=== PATIENT | female | born 1960 | race Caucasian/White ===

== ENCOUNTER 2016-11-05 07:06 | Day surgery (SDC) | payer OTHER ==
[~2016-11-05] VITALS: Ht 168.9 cm; Wt 96.2 kg
[~2016-11-05 07:06] MED LIST: ADVAIR 250/501 DISK IH; ADVAIR 500/501 DISK IH; ANTIVERT25 MG PO; ASPIR 8181 M1 PO; ASPIR-LOW81 MG PO; ASPIRIN81 M2 PO; ATORVASTATIN CA20 MG PO; Aspirin E.C. PO; BREO ELLIPTA I1 EACH IH; DEXILANT60 MG PO; FLEXERIL10 MG PO; GLUCOPHAGE1000 MG PO; HYDROCODON-ACE1 EAC7 PO; IBUPROFEN800 MG PO; INDERAL20 MG PO; LEXAPRO10 MG PO; LIPITOR20 MG PO; LO-DOSE ASPIRIN81 M1 PO; LO-DOSE ASPIRIN81 M2 PO; LOW DOSE ASPIRI81 M1 PO; LYRICA100 MG PO; LYRICA50 MG PO; MECLIZINE HCL25 MG PO; METFORMIN HCL500 MG PO; METHIMAZOLE5 MG PO; MOBIC7.5 MG PO; MOTRIN800 MG PO; NAPROSYN250 MG PO; NAPROSYN500 MG PO; NAPROXEN500 MG PO; NICOTINE PATCH1 EAC1 TD; NORCO 5/3251 TABLET PO; PREDNISONE20 MG PO; PREDNISONE50 MG PO; PRILOSEC20 MG PO; PROPRANOLOL HCL20 MG PO; PROTONIX40 MG PO; REGLAN10 MG PO; ST. JOSEPH ASPI81 MG PO; TAPAZOLE5 MG PO; TRADJENTA5 MG PO; TYLENOL EXTRA500 MG PO; VENTOLIN HFA18 GM IH; WELLBUTRIN SR150 MG PO; ZITHROMAX Z-PA250 MG PO
[2016-11-05 07:55] LABS: POINT-OF-CARE METER ID UU14174212
[2016-11-05] MEDS ORDERED: CO Q-10100 MG PO (08:01)
[2016-11-05] MEDS ORDERED: ASCORBIC ACID500 M3 PO (08:01)
[2016-11-05] MEDS ORDERED: DAILY VALUE1 EACH PO (08:02)
== END 2016-11-05 09:30 | disposition home or self-care (01) ==
LOC: PAIN 07:06 → SDC 08:30 → PAIN 08:30
PROVIDERS: Anesthesiology Pain Medicine
PROC: 3E0T3BZ Introduction of Anesthetic Agent into Peripheral Nerves and Plexi, Percutaneous Approach (ICD-10-PCS; principal; 2016-11-05)
DX: M47.896 Other spondylosis, lumbar region (principal); Z53.9 Procedure and treatment not carried out, unspecified reason
CPT/HCPCS: 82948

== ENCOUNTER 2017-02-11 09:36 | Day surgery (SDC) | payer OTHER ==
[~2017-02-11] VITALS: Ht 167.6 cm; Wt 98.9 kg
[~2017-02-11 09:36] MED LIST changes: +ASCORBIC ACID500 M3 PO; +AZELASTINE137 MCG/0. BOTH NARES; +CLARITIN10 M3 PO; +CO Q-10100 MG PO; +DAILY VALUE1 EACH PO; +DUONEB 2.5-0.5 M3 ML AEROSOL; +MUCINEX D ER T1 EACH PO; +NICODERM CQ1 EAC1 TD; +PRANDIN1 MG PO
[2017-02-11 10:27] LABS: POINT-OF-CARE METER ID UU14174212
== END 2017-02-11 11:43 | disposition home or self-care (01) ==
LOC: PAIN 09:36 → SDC 10:15 → PAIN 11:43
PROVIDERS: Anesthesiology Pain Medicine
DX: M47.26 Other spondylosis with radiculopathy, lumbar region (principal); F41.9 Anxiety disorder, unspecified; G89.29 Other chronic pain; Z79.891 Long term (current) use of opiate analgesic; E11.9 Type 2 diabetes mellitus without complications; J44.9 Chronic obstructive pulmonary disease, unspecified; E66.9 Obesity, unspecified; Z68.35 Body mass index [BMI] 35.0-35.9, adult; Z88.5 Allergy status to narcotic agent; Z88.8 Allergy status to other drugs, medicaments and biological substances; Z79.82 Long term (current) use of aspirin
CPT/HCPCS: 82948; J1030; J2250; J3010; S0020

== ENCOUNTER 2017-02-18 09:06 | Day surgery (SDC) | payer OTHER ==
[~2017-02-18] VITALS: Ht 167.6 cm; Wt 98.9 kg
[2017-02-18 09:53] LABS: POINT-OF-CARE METER ID UU14174212
== END 2017-02-18 10:10 | disposition home or self-care (01) ==
LOC: PAIN 09:06 → SDC 10:00 → PAIN 10:00
PROVIDERS: Anesthesiology Pain Medicine
DX: M51.16 Intervertebral disc disorders with radiculopathy, lumbar region (principal); I10 Essential (primary) hypertension; J44.9 Chronic obstructive pulmonary disease, unspecified; J45.909 Unspecified asthma, uncomplicated; K21.9 Gastro-esophageal reflux disease without esophagitis; E03.9 Hypothyroidism, unspecified; Z86.73 Personal history of transient ischemic attack (TIA), and cerebral infarction without residual deficits; F41.8 Other specified anxiety disorders; E78.5 Hyperlipidemia, unspecified; E66.9 Obesity, unspecified; Z68.35 Body mass index [BMI] 35.0-35.9, adult; Z79.84 Long term (current) use of oral hypoglycemic drugs; Z79.82 Long term (current) use of aspirin; Z79.891 Long term (current) use of opiate analgesic; Z79.899 Other long term (current) drug therapy
CPT/HCPCS: 82948; J1030; J2250; J3010; S0020

== ENCOUNTER 2017-03-08 16:35 | Emergency (ER) | payer OTHER ==
[~2017-03-08] VITALS: Ht 167.6 cm; Wt 97.7 kg
[2017-03-08 17:37] LABS: HEMATOCRIT 39.8 % (36.0-46.0); MCHC 32.9 G/DL (30.0-36.0); MCV 97.1 FL (83-99); PLATELET COUNT 120 K/uL (156-360); RBC DIS.WIDTH-CV 13.3 % (11.8-14.6); RBC DIS.WIDTH-SD 47.6 % (39-53); WHITE BLOOD COUNT 12.8 K/uL (4.1-10.2)
[2017-03-08 17:46] LABS: CHLORIDE 106 mEq/L (99-109); POTASSIUM 3.9 mEq/L (3.7-5.4); SODIUM 140 mEq/L (136-147)
[2017-03-08 17:48] LABS: GLUCOSE 161 mg/dL (70-99)
[2017-03-08 17:49] LABS: ANION GAP 12 MEQ/L (2-14)
[2017-03-08 17:52] LABS: GFR ESTIMATE (CALCULATED) > 59 mL/min/; UREA NITROGEN (BUN) 13 mg/dL (9-23)
[2017-03-08 17:59] LABS: TROP-I INTERPRETATION NEGATIVE; TROPONIN-I < 0.01 ng/mL (0.0-0.30)
[2017-03-08 21:13] VITALS: BP 159/82
== END 2017-03-08 21:14 | disposition home or self-care (01) ==
LOC: EME → EDBD 16:35 → EME 16:35
PROVIDERS: Emergency Medicine
DX: R42 Dizziness and giddiness (principal); J45.909 Unspecified asthma, uncomplicated; E11.9 Type 2 diabetes mellitus without complications; E78.5 Hyperlipidemia, unspecified; I25.2 Old myocardial infarction; Z86.73 Personal history of transient ischemic attack (TIA), and cerebral infarction without residual deficits; F17.200 Nicotine dependence, unspecified, uncomplicated
CPT/HCPCS: 80048; 84484; 85027; 93005; 99281; 99284; J7030

== ENCOUNTER 2017-04-24 08:52 | Inpatient (IN) | payer OTHER ==
[~2017-04-24] VITALS: Ht 167.6 cm; Wt 101.1 kg
[2017-04-24 10:15] LABS: HEMATOCRIT 40.5 % (36.0-46.0); MCH 31.1 PG (29.0-34.0); MCHC 32.6 G/DL (30.0-36.0); MCV 95.3 FL (83-99); MEAN PLAT.VOLUME 11.1 uM^3 (9.5-12.4); PLATELET COUNT 128 K/uL (156-360); RBC DIS.WIDTH-CV 14.3 % (11.8-14.6); RBC DIS.WIDTH-SD 49.5 % (39-53); RED BLOOD COUNT 4.25 M/uL (3.80-5.20)
[2017-04-24 10:23] LABS: CHLORIDE 103 mEq/L (99-109); POTASSIUM 4.1 mEq/L (3.7-5.4); SODIUM 137 mEq/L (136-147)
[2017-04-24 10:25] LABS: GLUCOSE 223 mg/dL (70-99)
[2017-04-24 10:27] LABS: ANION GAP 10 MEQ/L (2-14)
[2017-04-24 10:29] LABS: GFR ESTIMATE (CALCULATED) > 59 mL/min/
[2017-04-24 10:30] LABS: UREA NITROGEN (BUN) 7 mg/dL (9-23)
[2017-04-24 13:02] LABS: ADD MIUA? YES; BILIRUBIN NEGATIVE; BLOOD NEGATIVE; COLOR YELLOW ((YELLOW)); GLUCOSE (STRIP) NEGATIVE; KETONES NEGATIVE; LEUKOCYTES SMALL; NITRITE NEGATIVE; PROTEIN (STRIP) 30; SPECIFIC GRAVITY 1.011 (1.000-1.030); UROBILINOGEN 0.2 MG/DL (0.2-1.0)
[2017-04-24 13:08] LABS: BACTERIA RARE /HPF; EPITHELIAL CELLS RARE /HPF; MUCUS TRACE /LPF; RED BLOOD CELLS 0-5 /HPF (0-5); UCUL ADDED? NO
[2017-04-24] MEDS ORDERED: BUPROPION XL150 MG PO (15:55)
[2017-04-24] MEDS ORDERED: LEXAPRO20 MG PO (15:56)
[2017-04-24] MEDS ORDERED: MOBIC15 MG PO (15:59)
[2017-04-24] MEDS ORDERED: ALOGLIPTIN12.5 MG PO (16:05)
[2017-04-24 17:08] LABS: INFLUENZA A VIRAL ANTIGEN NEGATIVE; INFLUENZA B VIRAL ANTIGEN NEGATIVE
[2017-04-24 17:24] VITALS: BP 107/56
[2017-04-24 18:06] LABS: METH RESISTANT S AUREUS PCR NEGATIVE (NEGATIVE); PROBE CHECK PASS; SPECIMEN PROCESSING CONTROL PASS
[2017-04-24 20:00] VITALS: BP 105/54
[2017-04-25] VITALS (7 sets, daily range): BP systolic 125–169; BP diastolic 58–81
[2017-04-25 06:30] LABS: HEMATOCRIT 37.2 % (36.0-46.0); MCH 31.5 PG (29.0-34.0); MCHC 32.3 G/DL (30.0-36.0); MCV 97.6 FL (83-99); MEAN PLAT.VOLUME 11.5 uM^3 (9.5-12.4); PLATELET COUNT 105 K/uL (156-360); RBC DIS.WIDTH-CV 14.4 % (11.8-14.6); RBC DIS.WIDTH-SD 51.4 % (39-53); RED BLOOD COUNT 3.81 M/uL (3.80-5.20); WHITE BLOOD COUNT 7.4 K/uL (4.1-10.2)
[2017-04-25 06:55] LABS: ANION GAP 7 MEQ/L (2-14); CHLORIDE 108 MEQ/L (99-109); GFR ESTIMATE (CALCULATED) > 59 mL/min/; GLUCOSE 203 mg/dL (70-99); POTASSIUM 4.1 MEQ/L (3.7-5.4); SAMPLE HEMOLYSIS CHECK 0; SAMPLE ICTERIC CHECK 0; SAMPLE LIPEMIA CHECK 0; SODIUM 140 MEQ/L (136-147); UREA NITROGEN (BUN) 10 mg/dL (9-23)
[2017-04-25 07:48] LABS: POINT-OF-CARE METER ID UU14174225
[2017-04-25 11:03] LABS: INTERNAL CONTROL VALID? YES
[2017-04-25 11:57] LABS: POINT-OF-CARE METER ID UU14174225
[2017-04-25 16:39] LABS: POINT-OF-CARE METER ID UU13113717
[2017-04-26 03:44] VITALS: BP 140/81
[2017-04-26 06:23] LABS: HEMATOCRIT 37.1 % (36.0-46.0); MCH 30.8 PG (29.0-34.0); MCHC 32.1 G/DL (30.0-36.0); MCV 96.1 FL (83-99); MEAN PLAT.VOLUME 11.5 uM^3 (9.5-12.4); PLATELET COUNT 124 K/uL (156-360); RBC DIS.WIDTH-SD 49.7 % (39-53); RED BLOOD COUNT 3.86 M/uL (3.80-5.20); WHITE BLOOD COUNT 6.3 K/uL (4.1-10.2)
[2017-04-26 08:15] LABS: POINT-OF-CARE METER ID UU14174225
[2017-04-26 08:41] VITALS: BP 148/82
[2017-04-26] MEDS ORDERED: CEFDINIR300 MG PO (09:17)
[2017-04-26] MEDS ORDERED: NICODERM CQ1 EAC1 TD (09:17)
== END 2017-04-26 11:25 | disposition home or self-care (01) | DRG 871 ==
LOC: EME 08:52 → EDOF 14:44 → 5SOUTH 15:52
PROVIDERS: Emergency Medicine; Internal Medicine
DX: A41.9 Sepsis, unspecified organism (principal); J44.0 Chronic obstructive pulmonary disease with (acute) lower respiratory infection; J18.9 Pneumonia, unspecified organism; E11.65 Type 2 diabetes mellitus with hyperglycemia; E05.90 Thyrotoxicosis, unspecified without thyrotoxic crisis or storm; E78.5 Hyperlipidemia, unspecified; G89.29 Other chronic pain; M54.31 Sciatica, right side; K21.9 Gastro-esophageal reflux disease without esophagitis; I10 Essential (primary) hypertension; F17.210 Nicotine dependence, cigarettes, uncomplicated; Z79.82 Long term (current) use of aspirin; I25.2 Old myocardial infarction; Z79.84 Long term (current) use of oral hypoglycemic drugs; Z86.73 Personal history of transient ischemic attack (TIA), and cerebral infarction without residual deficits
CPT/HCPCS: 71020; 71250; 80048; 81003; 82948; 83605; 85027; 87040; 87070; 87086; 87205; 87449; 87502; 87641; 94640; 94799; 99202; 99281; 99285; J0696; J1650; J1815; J7030; J7050

== ENCOUNTER → 2017-07-16 | Outpatient (CLI) | payer OTHER ==
[~2017-07-16] MED LIST changes: +ALOGLIPTIN12.5 MG PO; +BUPROPION XL150 MG PO; +CEFDINIR300 MG PO; +LEXAPRO20 MG PO; +MOBIC15 MG PO
== END | disposition home or self-care (01) ==
LOC: RES 09:22
DX: J45.909 Unspecified asthma, uncomplicated (principal); J44.9 Chronic obstructive pulmonary disease, unspecified
CPT/HCPCS: 94060; 94726; 94729

== ENCOUNTER 2017-07-21 17:28 | Emergency (ER) | payer OTHER ==
[~2017-07-21] VITALS: Ht 167.6 cm; Wt 96.3 kg
[2017-07-21 19:05] LABS: HEMATOCRIT 44.8 % (36.0-46.0); MCH 32.1 PG (29.0-34.0); MCHC 33.5 G/DL (30.0-36.0); MCV 95.7 FL (83-99); PLATELET COUNT 179 K/uL (156-360); RBC DIS.WIDTH-SD 48.8 % (39-53); RED BLOOD COUNT 4.68 M/uL (3.80-5.20); WHITE BLOOD COUNT 10.6 K/uL (4.1-10.2)
[2017-07-21 19:16] LABS: CHLORIDE 108 mEq/L (99-109); POTASSIUM 4.3 mEq/L (3.7-5.4); SODIUM 144 mEq/L (136-147)
[2017-07-21 19:17] LABS: GLUCOSE 224 mg/dL (70-99)
[2017-07-21 19:19] LABS: ANION GAP 16 MEQ/L (2-14)
[2017-07-21 19:21] LABS: GFR ESTIMATE (CALCULATED) > 59 mL/min/
[2017-07-21 19:22] LABS: UREA NITROGEN (BUN) 11 mg/dL (9-23)
[2017-07-21 19:28] LABS: TROP-I INTERPRETATION NEGATIVE; TROPONIN-I 0.07 ng/mL (0.0-0.30)
[2017-07-21 21:48] LABS: TROP-I INTERPRETATION NEGATIVE; TROPONIN-I 0.07 ng/mL (0.0-0.30)
[2017-07-21 22:36] VITALS: BP 129/72
== END 2017-07-21 22:38 | disposition home or self-care (01) ==
LOC: EME 17:28
PROVIDERS: Emergency Medicine
DX: R07.89 Other chest pain (principal); M79.601 Pain in right arm; R42 Dizziness and giddiness; I10 Essential (primary) hypertension; E78.5 Hyperlipidemia, unspecified; J45.909 Unspecified asthma, uncomplicated; E11.9 Type 2 diabetes mellitus without complications; Z79.84 Long term (current) use of oral hypoglycemic drugs; Z79.82 Long term (current) use of aspirin; F17.200 Nicotine dependence, unspecified, uncomplicated
CPT/HCPCS: 71020; 80048; 84484; 85027; 93005; 99281; 99284

== ENCOUNTER 2017-08-11 16:54 | Emergency (ER) | payer OTHER ==
[~2017-08-11] VITALS: Ht 167.6 cm; Wt 97.3 kg
[2017-08-11 17:25] LABS: ADD MIUA? YES; BILIRUBIN SMALL; BLOOD NEGATIVE; COLOR YELLOW ((YELLOW)); GLUCOSE (STRIP) >=500; KETONES 5; LEUKOCYTES NEGATIVE; NITRITE NEGATIVE; PROTEIN (STRIP) 30; SPECIFIC GRAVITY 1.037 (1.000-1.030)
[2017-08-11 17:34] LABS: BACTERIA RARE /HPF; BUDDING YEAST RARE; EPITHELIAL CELLS 1+ /HPF; HYALINE CASTS 0-5 /LPF; MUCUS TRACE /LPF; RED BLOOD CELLS 0-5 /HPF (0-5); UCUL ADDED? NO; WHITE BLOOD CELLS 0-5 /HPF (0-5)
[2017-08-11 17:51] LABS: HEMATOCRIT 42.4 % (36.0-46.0); MCH 31.2 PG (29.0-34.0); MCHC 32.8 G/DL (30.0-36.0); MCV 95.3 FL (83-99); MEAN PLAT.VOLUME 12.1 uM^3 (9.5-12.4); PLATELET COUNT 156 K/uL (156-360); RBC DIS.WIDTH-CV 13.9 % (11.8-14.6); RBC DIS.WIDTH-SD 48.6 % (39-53); RED BLOOD COUNT 4.45 M/uL (3.80-5.20); WHITE BLOOD COUNT 10.3 K/uL (4.1-10.2)
[2017-08-11 18:03] LABS: CHLORIDE 105 mEq/L (99-109); POTASSIUM 3.8 mEq/L (3.7-5.4); SODIUM 141 mEq/L (136-147)
[2017-08-11 18:06] LABS: GLUCOSE 269 mg/dL (70-99)
[2017-08-11 18:07] LABS: ANION GAP 12 MEQ/L (2-14)
[2017-08-11 18:08] LABS: TOTAL BILIRUBIN 0.4 mg/dL (0.0-1.0)
[2017-08-11 18:09] LABS: ALKALINE PHOSPHATASE 86 IU/L (3-129); GFR ESTIMATE (CALCULATED) > 59 mL/min/
[2017-08-11 18:10] LABS: UREA NITROGEN (BUN) 9 mg/dL (9-23)
[2017-08-11 20:39] VITALS: BP 117/57
== END 2017-08-11 20:39 | disposition home or self-care (01) ==
LOC: EME 16:54
DX: R10.32 Left lower quadrant pain (principal); R42 Dizziness and giddiness; Z90.49 Acquired absence of other specified parts of digestive tract; K57.30 Diverticulosis of large intestine without perforation or abscess without bleeding; K42.9 Umbilical hernia without obstruction or gangrene; K76.0 Fatty (change of) liver, not elsewhere classified; I10 Essential (primary) hypertension; E78.5 Hyperlipidemia, unspecified; J45.909 Unspecified asthma, uncomplicated; E11.9 Type 2 diabetes mellitus without complications; Z79.84 Long term (current) use of oral hypoglycemic drugs; Z79.82 Long term (current) use of aspirin; Z86.73 Personal history of transient ischemic attack (TIA), and cerebral infarction without residual deficits; F17.200 Nicotine dependence, unspecified, uncomplicated
CPT/HCPCS: 74177; 80053; 81003; 85027; 93005; 99281; 99285; J7030

== ENCOUNTER 2017-09-18 15:37 | Emergency (ER) | payer OTHER ==
[~2017-09-18] VITALS: Ht 167.6 cm; Wt 98.6 kg
[2017-09-18 16:43] LABS: HEMATOCRIT 41.8 % (36.0-46.0); MCH 31.4 PG (29.0-34.0); MCHC 32.8 G/DL (30.0-36.0); MCV 95.9 FL (83-99); MEAN PLAT.VOLUME 11.5 uM^3 (9.5-12.4); PLATELET COUNT 156 K/uL (156-360); RBC DIS.WIDTH-CV 13.6 % (11.8-14.6); RED BLOOD COUNT 4.36 M/uL (3.80-5.20); WHITE BLOOD COUNT 11.7 K/uL (4.1-10.2)
[2017-09-18 17:00] LABS: CHLORIDE 103 mEq/L (99-109); POTASSIUM 4.4 mEq/L (3.7-5.4); SODIUM 136 mEq/L (136-147)
[2017-09-18 17:03] LABS: ANION GAP 16 MEQ/L (2-14)
[2017-09-18 17:06] LABS: GFR ESTIMATE (CALCULATED) > 59 mL/min/
[2017-09-18 17:07] LABS: UREA NITROGEN (BUN) 15 mg/dL (9-23)
[2017-09-18 17:09] LABS: GLUCOSE 448 mg/dL (70-99)
[2017-09-18 17:10] LABS: TROP-I INTERPRETATION NEGATIVE; TROPONIN-I 0.04 ng/mL (0.0-0.30)
[2017-09-18 18:00] LABS: CARBON DIOXIDE (BICARBONATE) 23.4 MEQ/L (20-31)
[2017-09-18 18:23] LABS: D-DIMER ELISA < 150.00 ng/mLDDU (<230)
[2017-09-18 20:14] LABS: TROP-I INTERPRETATION NEGATIVE; TROPONIN-I 0.04 ng/mL (0.0-0.30)
[2017-09-18] MEDS ORDERED: PREDNISONE20 MG PO (22:02)
[2017-09-18] MEDS ORDERED: VENTOLIN HFA18 GM IH (22:02)
[2017-09-18] MEDS ORDERED: ZITHROMAX Z-PA250 MG PO (22:02)
[2017-09-18 22:10] LABS: POINT-OF-CARE METER ID UU14100415
[2017-09-18 22:26] VITALS: BP 133/86
== END 2017-09-18 22:27 | disposition home or self-care (01) ==
LOC: EME 15:37
PROVIDERS: Physician Assistant Medical
DX: J44.1 Chronic obstructive pulmonary disease with (acute) exacerbation (principal); E78.5 Hyperlipidemia, unspecified; I10 Essential (primary) hypertension; F17.200 Nicotine dependence, unspecified, uncomplicated; E11.9 Type 2 diabetes mellitus without complications; Z79.84 Long term (current) use of oral hypoglycemic drugs; I25.2 Old myocardial infarction; K21.9 Gastro-esophageal reflux disease without esophagitis; E05.90 Thyrotoxicosis, unspecified without thyrotoxic crisis or storm; Z86.73 Personal history of transient ischemic attack (TIA), and cerebral infarction without residual deficits; F41.9 Anxiety disorder, unspecified; Z79.82 Long term (current) use of aspirin; Z88.5 Allergy status to narcotic agent; Z88.8 Allergy status to other drugs, medicaments and biological substances
CPT/HCPCS: 71020; 80048; 82010; 82803; 82948; 84484; 85027; 85379; 93005; 94640; 99281; 99285; J7030

== ENCOUNTER 2017-11-04 12:58 | Day surgery (SDC) | payer OTHER ==
[~2017-11-04] VITALS: Ht 167.6 cm; Wt 96.6 kg
== END 2017-11-04 14:30 | disposition home or self-care (01) ==
LOC: PAIN 12:58 → SDC 13:30 → PAIN 13:30
PROVIDERS: Anesthesiology Pain Medicine
DX: M47.26 Other spondylosis with radiculopathy, lumbar region (principal); M47.16 Other spondylosis with myelopathy, lumbar region; M51.06 Intervertebral disc disorders with myelopathy, lumbar region; G89.29 Other chronic pain; M79.1 Myalgia; F41.8 Other specified anxiety disorders; E11.9 Type 2 diabetes mellitus without complications; E78.5 Hyperlipidemia, unspecified; I10 Essential (primary) hypertension; I69.354 Hemiplegia and hemiparesis following cerebral infarction affecting left non-dominant side; F17.210 Nicotine dependence, cigarettes, uncomplicated; Z79.82 Long term (current) use of aspirin; Z79.891 Long term (current) use of opiate analgesic; Z79.84 Long term (current) use of oral hypoglycemic drugs; E66.9 Obesity, unspecified; Z68.34 Body mass index [BMI] 34.0-34.9, adult
CPT/HCPCS: 82948; J1030; J2250; J3010; S0020

== ENCOUNTER 2017-12-09 09:48 | Day surgery (SDC) | payer OTHER ==
[~2017-12-09] VITALS: Ht 167.6 cm; Wt 96.6 kg
== END 2017-12-09 11:30 | disposition home or self-care (01) ==
LOC: PAIN 09:48
PROVIDERS: Anesthesiology Pain Medicine
DX: M47.816 Spondylosis without myelopathy or radiculopathy, lumbar region (principal); M54.5 Low back pain; G89.29 Other chronic pain; K21.0 Gastro-esophageal reflux disease with esophagitis; E11.65 Type 2 diabetes mellitus with hyperglycemia; E78.5 Hyperlipidemia, unspecified; J44.9 Chronic obstructive pulmonary disease, unspecified; E03.9 Hypothyroidism, unspecified; I25.2 Old myocardial infarction; Z86.73 Personal history of transient ischemic attack (TIA), and cerebral infarction without residual deficits; F17.200 Nicotine dependence, unspecified, uncomplicated; Z79.82 Long term (current) use of aspirin; Z79.891 Long term (current) use of opiate analgesic; Z79.84 Long term (current) use of oral hypoglycemic drugs
CPT/HCPCS: 82948; J1030; J2250; J3010; S0020

== ENCOUNTER 2018-02-14 14:30 | Emergency (ER) | payer OTHER ==
[~2018-02-14] VITALS: Ht 167.6 cm; Wt 93.1 kg
[2018-02-14 16:12] VITALS: BP 132/61
== END 2018-02-14 16:13 | disposition home or self-care (01) ==
LOC: EME 14:30
DX: M54.5 Low back pain (principal); G89.29 Other chronic pain; J44.9 Chronic obstructive pulmonary disease, unspecified; E11.9 Type 2 diabetes mellitus without complications; E78.5 Hyperlipidemia, unspecified; F17.200 Nicotine dependence, unspecified, uncomplicated; Z88.5 Allergy status to narcotic agent; Z88.8 Allergy status to other drugs, medicaments and biological substances
CPT/HCPCS: 72100; 99281; 99283; J1885

== ENCOUNTER 2018-03-24 07:55 | Day surgery (SDC) | payer OTHER ==
[~2018-03-24] VITALS: Ht 167.6 cm; Wt 96.6 kg
[~2018-03-24 07:55] MED LIST changes: +TRULICITY0.75 MG/0. SC; +TRULICITY1.5 MG/0.5 SC
== END 2018-03-24 09:20 | disposition home or self-care (01) ==
LOC: PAIN 07:55 → SDC 08:15 → PAIN 09:20
PROVIDERS: Anesthesiology Pain Medicine
DX: M16.11 Unilateral primary osteoarthritis, right hip (principal); M47.816 Spondylosis without myelopathy or radiculopathy, lumbar region; M79.7 Fibromyalgia; J44.9 Chronic obstructive pulmonary disease, unspecified; I10 Essential (primary) hypertension; E03.9 Hypothyroidism, unspecified; K21.0 Gastro-esophageal reflux disease with esophagitis; F41.8 Other specified anxiety disorders; E11.69 Type 2 diabetes mellitus with other specified complication; E78.6 Lipoprotein deficiency; E78.1 Pure hyperglyceridemia; I25.2 Old myocardial infarction; Z86.73 Personal history of transient ischemic attack (TIA), and cerebral infarction without residual deficits; F17.210 Nicotine dependence, cigarettes, uncomplicated; Z79.82 Long term (current) use of aspirin; Z79.891 Long term (current) use of opiate analgesic; Z79.84 Long term (current) use of oral hypoglycemic drugs
CPT/HCPCS: 82948; J1030; J2250; S0020

== ENCOUNTER 2018-04-08 17:35 | Emergency (ER) | payer OTHER ==
[~2018-04-08] VITALS: Ht 167.6 cm; Wt 102.1 kg
[2018-04-08 20:35] VITALS: BP 140/72
== END 2018-04-08 20:29 | disposition home or self-care (01) ==
LOC: EME 17:35
DX: S00.212A Abrasion of left eyelid and periocular area, initial encounter (principal); S80.211A Abrasion, right knee, initial encounter; W10.9XXA Fall (on) (from) unspecified stairs and steps, initial encounter; M17.11 Unilateral primary osteoarthritis, right knee; I10 Essential (primary) hypertension; E11.9 Type 2 diabetes mellitus without complications; Z79.84 Long term (current) use of oral hypoglycemic drugs; E78.5 Hyperlipidemia, unspecified; J44.9 Chronic obstructive pulmonary disease, unspecified; G89.29 Other chronic pain; M54.9 Dorsalgia, unspecified; I25.2 Old myocardial infarction; F17.200 Nicotine dependence, unspecified, uncomplicated; Z86.73 Personal history of transient ischemic attack (TIA), and cerebral infarction without residual deficits; Z79.82 Long term (current) use of aspirin; Z87.09 Personal history of other diseases of the respiratory system; Z90.49 Acquired absence of other specified parts of digestive tract; Z88.5 Allergy status to narcotic agent; Z88.8 Allergy status to other drugs, medicaments and biological substances
CPT/HCPCS: 70450; 73564; 99281; 99284